=== PATIENT | female | born 1990 | race African-American/Black ===

== ENCOUNTER 2016-08-10 17:41 | Emergency (ER) | payer BC, OTHER ==
[~2016-08-10] VITALS: Ht 160 cm; Wt 68.0 kg
[2016-08-10] MEDS ORDERED: NORCO 5-325 TA1 EACH PO (19:32)
[2016-08-10] MEDS ORDERED: CYCLOBENZAPRINE5 MG PO (20:56)
[2016-08-10 21:08] VITALS: BP 116/76
== END 2016-08-10 21:09 | disposition home or self-care (01) ==
LOC: ER 17:41
DX: S16.1XXA Strain of muscle, fascia and tendon at neck level, initial encounter (principal); M54.89 Other dorsalgia; Z91.018 Allergy to other foods; V47.5XXA Car driver injured in collision with fixed or stationary object in traffic accident, initial encounter; Y93.89 Activity, other specified; Y92.415 Exit ramp or entrance ramp of street or highway as the place of occurrence of the external cause; Y99.8 Other external cause status